=== PATIENT | male | born 1955 | race Caucasian/White ===

== ENCOUNTER 2025-01-29 23:58 | Inpatient (IN) | payer OTHER, SELFPAY ==
[2025-01-29 18:34] VITALS: BP 174/112
[2025-01-29 18:52] LABS: % Basophils 0.8 % (0-2); % Eosinophils 1.6 % (0-6); % Immature Granulocytes 0.6 % (0-0.5); % Lymphocytes 18.9 % (20.5-51.1); % Neutrophils 71.1 % (42.2-75.2); Absolute Basophils 0.1 10^3/uL (0-0.2); Absolute Eosinophils 0.2 10^3/uL (0-0.7); Absolute Immature Granulocytes 0.1 10^3/uL (0-0.05); Absolute Monocytes 0.7 10^3/uL (0.1-0.6); Absolute Neutrophils 7.5 10^3/uL (1.4-6.5); Hematocrit 45.1 % (39.0-52.0); Hemoglobin 15.7 g/dL (13.0-18.0); Mean Corp Hgb Conc. 34.8 g/dL (33.0-37.0); Mean Corpuscular Hgb 29.6 pg (27.0-31.0); Mean Corpuscular Volume 85.1 fL (80.0-94.0); Mean Platelet Volume 9.8 fL (7.4-10.4); Nucleated Red Blood Cells % 0 % (-); Platelet Count 215 10^3/uL (130-400); Red Cell Dist. Width 13.7 % (11.5-14.5); White Blood Cell Count 10.5 10^3/uL (4.8-10.8)
[2025-01-29 19:07] LABS: ALT (SGPT) 30 U/L (0-50); AST (SGOT) 23 U/L (17-59); Albumin 3.9 g/dl (3.5-5.0); Alkaline Phosphatase 76 U/L (38-126); Blood Urea Nitrogen 17 mg/dl (9-20); Calcium 9.2 mg/dl (8.4-10.2); Carbon Dioxide 25 mmol/L (22-30); Chloride 109 mmol/L (98-107); Glucose 122 mg/dl (70-99); Potassium 4.2 mmol/L (3.5-5.1); Sodium 139 mmol/L (135-145); Total Bilirubin 0.8 mg/dl (0.2-1.3); Total Protein 6.2 g/dl (6.3-8.2); eGFR > 60.00
[2025-01-29 19:18] LABS: NT-proBNP 2360 pg/ml; Troponin I 0.037 ng/ml
[2025-01-29 19:31] VITALS: BP 162/97
[2025-01-29 19:33] VITALS: BMI 35.0
--- NOTE | 2025-01-29 19:42 | ED.GENMED ---
History of Present Illness
<Jyoti Hinojosa PA-C - Last Filed: 01/30/25 03:21>
General
Chief Complaint: Breathing Problem
Source: patient
Exam Limitations: none
Time Seen by Provider: 01/29/25 19:27
Nursing documentation reviewed up to this point in time: agreed with
History of Present Illness
History of Present Illness:
Patient is a 69-year-old male with history hypertension presenting to the emergency department for evaluation of shortness of breath. Patient states symptoms been ongoing for the past week although intermittent. He reports shortness of breath both
when lying flat at night and while walking short distances. He denies any associated chest pain, lightheadedness/dizziness, diaphoresis. Denies any back pain. No lower extremity pain or swelling. No fever or cough.
He states that last night he was walking to his car from [place] and had to stop because became so short of breath prompting his visit today to the emergency department.
Patient denies any recent travel or recent surgeries. No personal or family history of blood clots.
Past History
<Jyoti Hinojosa PA-C - Last Filed: 01/30/25 03:21>
Past History
ED Past Medical History: HTN
ED Past Surgical History: None
Social History
Tobacco: Non-smoker
Alcohol: None
Drug: None
Personal: Single
Living: alone
Employment: Employed (Has his own heating and plumbing business)
Review of Systems
<Jyoti Hinojosa PA-C - Last Filed: 01/30/25 03:21>
Review of Systems
Allergies reviewed?: Yes
All Other Systems: ROS reviewed and negative except as documented in HPI and ROS
Phy Exam
<Jyoti Hinojosa PA-C - Last Filed: 01/30/25 03:21>
Physical Exam
Physical Exam:
Vitals: Hypertensive, mildly tachycardic, otherwise vital signs stable. Afebrile
General: Patient is in no acute distress.
Skin: Warm and dry, no rashes or lesions
Head: Normocephalic, atraumatic
Eyes: Sclera nonicteric. EOMs intact. No nystagmus.
Throat: Protecting airway
Neck: Normal ROM, no cervical spine tenderness, no meningismus
Cardiac: Mildly tachycardic, normal rhythm, no murmurs.
Pulm: No apparent respiratory distress. Fine crackles at bases bilaterally.
.
Abdomen: Soft and nontender.
Extremities: No evidence of cyanosis or edema. DP pulses palpable bilaterally
Neuro: AAOx3. Grossly intact.
Psychiatric: Normal affect.
Scores
<Jyoti Hinojosa PA-C - Last Filed: 01/30/25 03:21>
Heart Failure Risk
HF Risk Score: 0
Admission Status: LOW RISK 2.8% Consider discharge to home with f/u visit to PCP/[facility]
<Hernandez Kyle DO - Last Filed: 01/29/25 23:16>
Heart Failure Risk
Heart Failure Risk Score: Yes
History of Stroke or TIA: No
History of intubation for respiratory distress: No
Heart rate on ED arrival >/= 110: No
SaO2 <90% on arrival on room air: No
HR >/=110 during 3min walk test (or too ill to perform test): No
ECG has acute ischemic changes: No
Urea >/=12mmol/L (BUN 33.6mg/dL): No
Serum CO2>/=35mmol/L: No
Troponin I or T elevated to ID Level (0.4mg/dL): No
NT-proBNP >/=5,000ng/L (5,000pg/ml): No
HF Risk Score: 0
Admission Status: LOW RISK 2.8% Consider discharge to home with f/u visit to PCP/[facility]
Course
<Jyoti Hinoojsa PA-C - Last Filed: 01/30/25 03:21>
Orders/Labs/Results
Orders:
Orders
01/29/25 18:36
Electrocardiogram (*1) Urgent
Reason for Study: Shortness of Breath
EKG- Treatment ONCE
01/29/25 18:46
Complete Blood Count/With Diff Urgent
Comprehensive Metabolic Panel Urgent
Pro-BNP [NT-proBNP] Urgent
Troponin I Urgent
01/29/25 19:40
EKG- Treatment ONCE
01/29/25 19:59
D-Dimer Urgent
01/29/25 20:25
CT Chest PE Study Urgent
Comment:
Reason For Exam: exertional SOB, elevated dimer
01/29/25 21:45
Electrocardiogram (*1) Urgent
Reason for Study: Shortness of Breath
01/29/25 21:58
Troponin I Urgent
01/29/25 23:14
Aspirin Chewable [Low Strength Aspirin] 324 mg PO NOW STA
Furosemide [Lasix] 40 mg IV NOW STA
01/29/25 23:43
Aspirin Chewable [Low Strength Aspirin] 81 mg .ROUTE .STK-MED ONE
01/29/25 23:49
Admit/Transfer Patient As Directed
Co-Sign Provider:
Level of Care: Inpatient admission
Assign to:: Telemetry
Physician / Group: Karolina
Diagnosis: new onset CHf
Reason for Telemetry: Subacute Heart Failure
Date to Stop Telemetry: 01/31/25
Time to Stop Telemetry: 11:00
Reason for Hospitalization: heart failure
Expected length of stay greater than two midnights?: Yes
ELOS- Estimated Length of Stay in days: 2
I certify the patient meets the requirements for IP care: Yes
Code Status As Directed
Resuscitation Status: Full Code
PRN Pain Medication Management As Directed
May give lesser potent ordered pain med per pt: Yes
preference::
Protocol:: Medication orders for pain may be administered in a
manner that supports deferring to patient preference
when the pt is:
- Requesting an ordered lesser potent pain medication.
Least to most potent pain medications are defined
as: acetaminophen < NSAID < tramadol < opioids
(morphine, oxycodone, hydromorphone).
- Requesting a lesser dose of the same medication IF
ORDERED.
- Requesting a less intrusive route of administration
if both routes are prescribed by the provider (PO <
IV).
01/29/25 23:54
Lisinopril [Zestril] 20 mg PO NOW STA
01/30/25 00:30
Nitroglycerin Sublingual [Nitrostat (Sublingual)] 0.4 mg SL [id number] PRN
01/30/25 00:30
Echo 2D MMode Color/Doppler Routine
Reason for Study: heart failure
CARDIOLOGY CONSULT Routine
Consulting Provider: Felix Grewal
Was physician already notified: No
Reason for consult: new onset CHF
Consult Notification Routine
Specialty to Notify: Cardiology
HF DIETARY CONSULT Routine
HF EDUCATOR CONSULT Routine
Comment:
Activity As Directed
Activity Level: With Assistance
Intake/ Output As Directed
Frequency: Per unit guidelines
Patient Education As Directed
Type: CHF folder
Comment: give on admission. Document in Interdisciplinary Education record
Sleep Apnea Assessment by RN As Directed
Comment:
Physician Instructions:
Vital Signs As Directed
Frequency: Other
Additional Instructions:: Q12 or per unit guidelines if more frequent.
Weight As Directed
Frequency: Daily
Type of Scale: Standing Scale
Comment: Daily morning weight. If unable to stand, use balanced bed scale.
Weight As Directed
Frequency: Once
Type of Scale: Standing Scale
Comment: Upon Admission. If unable to stand, use balanced bed scale.
Pulse Ox/cont/shift [RESP] Routine
Quantity: 1
Special Instructions: Daily pulse oximetry at rest. If greater than 92% at rest also obtain pulse oximetry
while ambulating as tolerated.
DX Deep Vein Thrombosis Video Routine
01/30/25 04:00
Troponin I Routine
01/30/25 06:00
Basic Metabolic Panel IN AM
Cardiovascular Evaluation IN AM
Hemoglobin A1c [Glycohemoglobin (HgbA1c)] IN AM
Magnesium IN AM
TSH Reflex To Free T4 IN AM
01/30/25 08:00
Aspirin Chewable [Low Strength Aspirin] 81 mg PO DAILY
Furosemide [Lasix] 40 mg IV BID AT 0800,1600
Lisinopril [Zestril] 20 mg PO BID
Tamsulosin [Flomax] 0.4 mg PO DAILY
01/30/25 Dinner
Cholesterol Lowering
At Your Request: Full Participation
Cholesterol Lowering: Sodium, 2 Gram
01/30/25 18:00
Enoxaparin Sodium [Lovenox] 40 mg SC QPM
01/31/25 06:00
Basic Metabolic Panel IN AM
01/31/25 11:00
DC Protocol for Telemetry ONCE
02/01/25 06:00
Basic Metabolic Panel IN AM
Abnormal Lab Results
01/29/25 01/29/25 01/29/25
18:46 19:59 21:58
Abs Immat Gran (auto) 0.1 H 10^3/uL
(0-0.05)
Absolute Neuts (auto) 7.5 H 10^3/uL
(1.4-6.5)
Absolute Monos (auto) 0.7 H 10^3/uL
(0.1-0.6)
Immature Gran % 0.6 H %
(0-0.5)
Lymphocytes % 18.9 L %
(20.5-51.1)
D-Dimer 0.80 H ug/mlFEU
(0.00-0.50)
Chloride 109 H mmol/L
(98-107)
Glucose 122 H mg/dl
(70-99)
Troponin I 0.037 H* ng/ml 0.043 H* ng/ml
Total Protein 6.2 L g/dl
(6.3-8.2)
01/29/25 18:46
01/29/25 18:46
Vital Signs
Initial and Last Documented VS:
Initial Vital Signs
Temp Pulse Resp BP Pulse Ox
98.4 F 98 18 174/112 96
01/29/25 18:34 01/29/25 18:34 01/29/25 18:34 01/29/25 18:34 01/29/25 18:34
Last Documented Vital Signs
Temp Pulse Resp BP Pulse Ox
98 F 81 16 168/93 92
01/30/25 03:02 01/30/25 03:02 01/30/25 03:02 01/30/25 00:12 01/30/25 03:02
Srinilt;Hernandez Kyle, DO - Last Filed: 01/29/25 23:16>
Orders/Labs/Results
Orders:
Orders
01/29/25 18:36
Electrocardiogram (*1) Urgent
Reason for Study: Shortness of Breath
EKG- Treatment ONCE
01/29/25 18:46
Complete Blood Count/With Diff Urgent
Comprehensive Metabolic Panel Urgent
Pro-BNP [NT-proBNP] Urgent
Troponin I Urgent
01/29/25 19:40
EKG- Treatment ONCE
01/29/25 19:59
D-Dimer Urgent
01/29/25 20:25
CT Chest PE Study Urgent
Comment:
Reason For Exam: exertional SOB, elevated dimer
01/29/25 21:45
Electrocardiogram (*1) Urgent
Reason for Study: Shortness of Breath
01/29/25 21:58
Troponin I Urgent
01/29/25 23:14
Aspirin Chewable [Low Strength Aspirin] 324 mg PO NOW STA
Furosemide [Lasix] 40 mg IV NOW STA
01/29/25 23:43
Aspirin Chewable [Low Strength Aspirin] 81 mg .ROUTE .STK-MED ONE
01/29/25 23:49
Admit/Transfer Patient As Directed
Co-Sign Provider:
Level of Care: Inpatient admission
Assign to:: Telemetry
Physician / Group: Karolina
Diagnosis: new onset CHf
Reason for Telemetry: Subacute Heart Failure
Date to Stop Telemetry: 01/31/25
Time to Stop Telemetry: 11:00
Reason for Hospitalization: heart failure
Expected length of stay greater than two midnights?: Yes
ELOS- Estimated Length of Stay in days: 2
I certify the patient meets the requirements for IP care: Yes
Code Status As Directed
Resuscitation Status: Full Code
PRN Pain Medication Management As Directed
May give lesser potent ordered pain med per pt: Yes
preference::
Protocol:: Medication orders for pain may be administered in a
manner that supports deferring to patient preference
when the pt is:
- Requesting an ordered lesser potent pain medication.
Least to most potent pain medications are defined
as: acetaminophen < NSAID < tramadol < opioids
(morphine, oxycodone, hydromorphone).
- Requesting a lesser dose of the same medication IF
ORDERED.
- Requesting a less intrusive route of administration
if both routes are prescribed by the provider (PO <
IV).
01/29/25 23:54
Lisinopril [Zestril] 20 mg PO NOW STA
01/30/25 00:30
Nitroglycerin Sublingual [Nitrostat (Sublingual)] 0.4 mg SL [id number] PRN
01/30/25 00:30
Echo 2D MMode Color/Doppler Routine
Reason for Study: heart failure
CARDIOLOGY CONSULT Routine
Consulting Provider: Felix Grewal
Was physician already notified: No
Reason for consult: new onset CHF
Consult Notification Routine
Specialty to Notify: Cardiology
HF DIETARY CONSULT Routine
HF EDUCATOR CONSULT Routine
Comment:
Activity As Directed
Activity Level: With Assistance
Intake/ Output As Directed
Frequency: Per unit guidelines
Patient Education As Directed
Type: CHF folder
Comment: give on admission. Document in Interdisciplinary Education record
Sleep Apnea Assessment by RN As Directed
Comment:
Physician Instructions:
Vital Signs As Directed
Frequency: Other
Additional Instructions:: Q12 or per unit guidelines if more frequent.
Weight As Directed
Frequency: Daily
Type of Scale: Standing Scale
Comment: Daily morning weight. If unable to stand, use balanced bed scale.
Weight As Directed
Frequency: Once
Type of Scale: Standing Scale
Comment: Upon Admission. If unable to stand, use balanced bed scale.
Pulse Ox/cont/shift [RESP] Routine
Quantity: 1
Special Instructions: Daily pulse oximetry at rest. If greater than 92% at rest also obtain pulse oximetry
while ambulating as tolerated.
DX Deep Vein Thrombosis Video Routine
01/30/25 04:00
Troponin I Routine
01/30/25 06:00
Basic Metabolic Panel IN AM
Cardiovascular Evaluation IN AM
Hemoglobin A1c [Glycohemoglobin (HgbA1c)] IN AM
Magnesium IN AM
TSH Reflex To Free T4 IN AM
01/30/25 08:00
Aspirin Chewable [Low Strength Aspirin] 81 mg PO DAILY
Furosemide [Lasix] 40 mg IV BID AT 0800,1600
Lisinopril [Zestril] 20 mg PO BID
Tamsulosin [Flomax] 0.4 mg PO DAILY
01/30/25 Dinner
Cholesterol Lowering
At Your Request: Full Participation
Cholesterol Lowering: Sodium, 2 Gram
01/30/25 18:00
Enoxaparin Sodium [Lovenox] 40 mg SC QPM
01/31/25 06:00
Basic Metabolic Panel IN AM
01/31/25 11:00
DC Protocol for Telemetry ONCE
02/01/25 06:00
Basic Metabolic Panel IN AM
Abnormal Lab Results
01/29/25 01/29/25 01/29/25
18:46 19:59 21:58
Abs Immat Gran (auto) 0.1 H 10^3/uL
(0-0.05)
Absolute Neuts (auto) 7.5 H 10^3/uL
(1.4-6.5)
Absolute Monos (auto) 0.7 H 10^3/uL
(0.1-0.6)
Immature Gran % 0.6 H %
(0-0.5)
Lymphocytes % 18.9 L %
(20.5-51.1)
D-Dimer 0.80 H ug/mlFEU
(0.00-0.50)
Chloride 109 H mmol/L
(98-107)
Glucose 122 H mg/dl
(70-99)
Troponin I 0.037 H* ng/ml 0.043 H* ng/ml
Total Protein 6.2 L g/dl
(6.3-8.2)
01/29/25 18:46
01/29/25 18:46
Vital Signs
Initial and Last Documented VS:
Initial Vital Signs
Temp Pulse Resp BP Pulse Ox
98.4 F 98 18 174/112 96
01/29/25 18:34 01/29/25 18:34 01/29/25 18:34 01/29/25 18:34 01/29/25 18:34
Last Documented Vital Signs
Temp Pulse Resp BP Pulse Ox
98 F 81 16 168/93 92
01/30/25 03:02 01/30/25 03:02 01/30/25 03:02 01/30/25 00:12 01/30/25 03:02
<Jyoti Hinojosa PA-C - Last Filed: 01/30/25 03:21>
MDM/Problems Addressed
Differential Diagnosis Includes:
Not limited to: Acute coronary syndrome, congestive heart failure, pulmonary embolism, anemia, viral illness, bronchitis, etc.
MDM/Problems Addressed:
69-year-old male presenting with 1 week exertional dyspnea and orthopnea. No associated chest pain, lightheadedness/dizziness, or back pain. No fever or cough or other infectious symptoms. Patient hypertensive on arrival, mildly decreased with my
assessment. Otherwise he has stable vital signs and is afebrile. Physical exam as above. Patient in no apparent respiratory distress. Heart regular rate and rhythm. Bibasilar rales noted on lung exam. No peripheral edema. Abdomen soft and
nontender. Differential broad. Lower suspicion for infectious etiology. Symptoms consistent with possible congestive heart failure versus ACS given exertional nature. Basic labs initiated in triage. CBC without acute abnormalities. Chemistry
unremarkable. Pro BNP elevated to 2360. Troponin elevated at 0.037. No acute ischemic changes noted on EKG. Given mild tachycardia and history of shortness of breath�will obtain D-dimer. Will plan to trend troponin.
Update: D-dimer mildly elevated to 0.8. Will check CTA chest. Patient remains well-appearing and in no apparent respiratory distress.
Update: CTA chest without evidence of pulmonary embolism. Small bilateral pleural effusions noted. Repeat troponin mildly increased to 0.03. EKG remains nonischemic and patient is chest pain-free. Overall impression is likely mild CHF. This
would be a new diagnosis for patient. Suspect elevated troponin likely secondary to demand ischemia. Low suspicion for acute coronary syndrome. Patient will require admission for IV diuresis, further troponin trending, echo, and cardiology
evaluation. Will give 40 mg IV Lasix and 324 aspirin in ED. Patient accepted to hospital service in stable condition. Patient seen alongside attending physician.
Chronic conditions affecting care:
Hypertension
Acute Exacerbation and/or Progression of Chronic Illness:
Acutely hypertensive
<Jyoti Hinojosa PA-C - Last Filed: 01/30/25 03:21>
*Radiology
Radiology exam reviewed: radiology read reviewed
*Pulse Oximetry
Patient hypoxic: no
*EKG
Interpreted by ED Provider?: Yes
EKG Intrepretation Date: 01/29/25
Interpretation: abnormal
Comparison EKG: no comparison EKG present
Heart Rate: 98
Rate: normal
Rhythm: sinus
QRS Pattern: normal QRS
Ischemia: non-specific ST changes
*Radio Operator Interpretation
Rate: tachycardiac
Interpretation: abnormal
Heart Rate: 103
Rhythm: sinus
*Critical Care Note
Total Time (30-74mins, 75-104mins- exclusive of procedures): Not Applicable
<Jyoti Hinojosa PA-C - Last Filed: 01/30/25 03:21>
Patient Management
Discussion with other providers: Hospitalist
Escalation/DeEscalation of care consider admission/obs:
Admit indicated
ED Attending Note
<Jyoti Hinojosa PA-C - Last Filed: 01/30/25 03:21>
-
Portions of this chart may have been created with voice recognition software.� Occasional wrong word or��sound alike� substitutions may have occurred due to the inherent limitations of voice recognition software.
<Hernandez Kyle, DO - Last Filed: 01/29/25 23:16>
ED Attending Note
Patient seen and examined by attending physician: Yes
ED Attending Note:
69-year-old male presents to the emergency department with shortness of breath. Patient states that his symptoms have been progressively worsening over the past week. He states that he also has dyspnea on exertion. Symptoms are exacerbated by
lying flat. He reports no chest pain. Patient denies previous history of congestive heart failure. Patient was seen in conjunction with the PA. I have reviewed and agree with the history and treatment plan presented. On my independent physical
exam, patient is awake, alert, and oriented x3, mild dyspnea. Tachycardic heart rate. No pedal edema present. Lab work which suggest early CHF. Patient to be admitted to trend troponins. Lasix and aspirin ordered.
Discharge Plan
Departure
Patient Disposition: Admit
Date of Disposition: 01/29/25
Time of Disposition: 23:14
Presentation/result/management discussed w/ accepting MD/DO: Hospitalist
Discharge Problem:
New onset of congestive heart failure, Elevated troponin
Interventions
Interventions:
*Risk Screen - Suicide Last Done: 01/29/25 18:34
*General Assessment Last Done: 01/29/25 18:34
*Neglect/Abuse Screening Last Done: 01/29/25 18:34
*ED- Fall Risk Assessment Last Done: 01/29/25 20:06
*ED COVID-19 Vaccine History Last Done: 01/29/25 20:06
*Nursing Disposition Last Done: 01/30/25 01:52
ED- Cardiac Assessment Last Done: 01/29/25 20:03
ED- Pulmonary Assessment Last Done: 01/29/25 20:03
Discharge Date and Time
Discharge Date/Time: 01/30/25 02:26
[2025-01-29 22:30] LABS: Troponin I 0.043 ng/ml
[2025-01-29 23:00] VITALS: BP 163/105
--- NOTE | 2025-01-29 23:24 | HPS.HSE ---
Family Physician
-
Family Physician: Izzy Kirk
Chief Complaint
-
Dyspnea on exertion
History of Present Illness
This is a 69-year-old male who reports past medical history of hypertension presenting to the emergency department with 1 week history of worsening respiratory symptoms.
Patient reported that he has been having dyspnea on exertion for several weeks. Over over the last 1 week he has been having orthopnea and propping himself to sleep at night. He reports that his dyspnea on exertion has gotten increasingly worse.
Denies any pedal edema. He denies palpitations lightheadedness or dizziness. He denies any exertional chest pain. He denies chest pain at rest. He denied pleuritic chest pain. He denies any cough fevers or chills. Patient reported that he last
took medications about 5 years ago in 2019 when he was on lisinopril 40 mg, Norvasc as well as tamsulosin for BPH. He also stopped using a CPAP. He denies any prior history of CAD. He denies any prior history of exertional chest pain. Denies any
prior history of valve disease. He denies any recent cold or flulike illness.
In the emergency department he was afebrile, blood pressure was 160/105, pulse was 92, oxygen saturation was around 92% on room air.
ECG shows normal sinus rhythm at a rate of 98 with occasional PVCs no acute ST or T wave changes. Troponin was 0.043. BNP was elevated at 2360. He had elevated dimer of 0.8, CT angio shows no evidence of PE. There is stable cardiomegaly with
small bilateral pleural effusions.
CBC was unremarkable stop electrolytes BUN and creatinine were normal.
Medical History
Past Medical History
Past Medical History: Reports HTN and Other (CONCHITA not on CPAP)
Past Surgical History: Reports Orthopedic (Right hip arthroplasty)
Social History
Tobacco: Non-smoker
Alcohol: Occasional
Drug: None
Personal: Single
Living: Alone
Employment: Retired
Family History
Family History: Not pertinent
Allergies / Home Medications
Allergies reflects when Allergies were last updated in [employer].
Home Medications with original date entered in [employer]
Allergy/Medication List:
Allergies
Allergy/AdvReac Type Severity Reaction Status Date / Time
No Known Allergies Allergy Verified 01/29/25 18:33
Home Medications
multivitamin 1 tab PO DAILY 01/29/25
Review of Systems
-
History Source: Patient
Constitutional: Reports No Symptoms
EENT: Reports No Symptoms
Respiratory: Reports Trouble Breathing
Cardiac: Reports No Symptoms
Abdomen/GI: Reports No Symptoms
: Reports No Symptoms
Musculoskeletal: Reports No Symptoms
Skin: Reports No Symptoms
Neurological: Reports No Symptoms
Endocrine: Reports No Symptoms
Hematologic/Lymphatic: Reports No Symptoms
Psych: Reports No Symptoms
Physical Exam
Vital Signs
Vital Signs
Temp Pulse Resp BP Pulse Ox
98.4 F 92 24 163/105 93
01/29/25 18:34 01/29/25 23:00 01/29/25 23:00 01/29/25 23:00 01/29/25 23:00
Physical Exam
General: Well Developed, Well Nourished and Respiratory Distress
HEENT: NormoCephalic, Anicteric, Moist mucous membranes and Atraumatic
Respiratory: Clear
Cardiac: S1/S2 and Regular Rhythm
Breast: Deferred by me
GI: Soft, Non Tender and Normal Bowel Sounds
Rectal: Deferred by Provider
Genito-urinary: Deferred by me
Musculoskeletal: No Clubbing, No Cyanosis and No Edema
Skin: Warm
Neuro: AO x 3 and Nonfocal/grossly intact
Hematologic/Lymphatic: No Lymphadenopathy
Psych: Calm
Laboratory Results
-
01/29/25 18:46
01/29/25 18:46
Laboratory Results
Total Bilirubin 0.8 mg/dl (0.2-1.3) 01/29/25 18:46
AST 23 U/L (17-59) 01/29/25 18:46
ALT 30 U/L (0-50) 01/29/25 18:46
Alkaline Phosphatase 76 U/L (38-126) 01/29/25 18:46
Troponin I 0.043 ng/ml H* 01/29/25 21:58
Data Reviewed
-
CT Scan: Report Reviewed by me
Medical Tests (Nuc Med, Echo, EKG etc): Image Personally Visualized and interpreted
Lab Data: Labs Reviewed by me
Old Records: Reviewed
Impression/Plan
-
IMPRESSION:
69-year-old with history of hypertension noncompliant with antihypertensive medications presented to the emergency department with worsening shortness of breath especially over the last 1 week. He has dyspnea on exertion without exertional chest
pain. He has orthopnea. He has some PND. He has some work of breathing even at rest when talking. Lung sounds clear, he has bilateral pleural effusions and mild cardiomegaly. ECG is nonischemic. Troponin 04. BNP is markedly elevated at 2300.
PLAN:
1. CHF - New onset CHF likely on the basis of uncontrolled HTN with markedly elevated diastolic HTN
- admit to telemetry
- lasix 40mg iv q 12
- restart lisinopril 20 bid
- holding further GDMT pending echo
- echo in am
- cardiology consultation
2. ACS - trop 0.043, no chest pain. ROCK. Negative CTA for PE.
- cycle cardiac enzymes
- asa 324 x 1, 81 daily
- ntg prn chest pain
- check lipid panel and a1c
- further ischemic testing in part to explain CHF per cardiology
3. HTN
- restarting lisinopril
- lasix
4. CONCHITA
- oxygen hs, does not want cpap
5. BPH
- restart tamsulosin
DVT PPX - lovenox sq
Code status - full code
[2025-01-29] MEDS: LOW STRENGTH ASPIRIN 324 MG PO (23:40)
[2025-01-29] MEDS: LASIX 40 MG IV (23:40)
[2025-01-30] VITALS (16 sets, daily range): BP systolic 101–168; BP diastolic 64–96; BMI 34.9
[2025-01-30] MEDS: ZESTRIL 20 MG PO ×3 (00:12→21:46)
--- NOTE | 2025-01-30 03:32 | PTCARENOTE ---
Pt was transferred into 2251 from ED for new onset CHF. Pt is AAOx3 SR with PVC's on the monitor. VSS Denies CP. HF education booklet given. POC was reviewed with pt. Call aguilera within reach.
[2025-01-30 04:53] LABS: Blood Urea Nitrogen 15 mg/dl (9-20); Calcium 9.5 mg/dl (8.4-10.2); Carbon Dioxide 29 mmol/L (22-30); Chloride 104 mmol/L (98-107); Estimated Creatinine Clearance 77 ml/min; Glucose 121 mg/dl (70-99); HDL Cholesterol 50 mg/dl; LDL Cholesterol, Calculated 165 mg/dl; Magnesium 2.1 mg/dl (1.6-2.3); Potassium 3.9 mmol/L (3.5-5.1); Sodium 141 mmol/L (135-145); Total Cholesterol 235 mg/dl (50-199); Triglyceride 104 mg/dl (10-149); Very Low Density Lipoprotein 20 mg/dl (0-30); eGFR > 60.00
[2025-01-30 05:07] LABS: Troponin I 0.045 ng/ml
[2025-01-30 05:21] LABS: TSH Reflex To Free T4 2.33 uIU/ml (0.47-4.68)
[2025-01-30] MEDS: LASIX 40 MG IV ×2 (08:27→16:09)
[2025-01-30] MEDS: FLOMAX 0.4 MG PO (08:28)
[2025-01-30] MEDS: LOW STRENGTH ASPIRIN 81 MG PO (08:28)
[2025-01-30] MEDS: FLUSH (NSS) 1 FLUSH IV ×2 (08:31→16:09)
--- NOTE | 2025-01-30 08:44 | W.PN.HOSP.TC ---
Today's Communication/Plan
-
cardiac cath today.
Assessment / Plan
Assessment / Plan
Impression:
69-year-old with history of hypertension noncompliant with antihypertensive medications presented to the emergency department with worsening shortness of breath especially over the last 1 week. He has dyspnea on exertion without exertional chest
pain. He has orthopnea. He has some PND. He has some work of breathing even at rest when talking. Lung sounds clear, he has bilateral pleural effusions and mild cardiomegaly. ECG is nonischemic. Troponin 04. BNP is markedly elevated at 2300.
Seen by cardiology.
Echocardiogram showed:
1. Left ventricle: Normal left ventricular chamber dimensions with moderately
reduced systolic function and estimated ejection fraction of 30-35% by
Gruber's method of discs. The ventricle appears globally hypokinetic. Mild
concentric LVH. Stage I diastolic dysfunction.
2. Right ventricle: Normal
3. Atria: Normal
4. Mitral valve: Mild to moderate mitral regurgitation
5. Aortic valve: Trace aortic insufficiency
6. Tricuspid valve: Trace tricuspid regurgitation. Estimated pulmonary artery
systolic pressures are 30-35 mmHg
Recommending cardiac cath
Assessment/plan:
Acute CHF Exacerbation:
Patient has Acute systolic congestive heart failure
Patient presented with shortness of breath.
BNP level is elevated at 2360
Troponin level peak is 0.045
Continue IV diuresing in form of Lasix 40 mg twice daily
Daily weight.
Strict I's and O's.
Consulted cardiology.
Most recent echo shows from 2018 shows normal EF:
Repeat echo shows EF 30-35 %
Currently recommending cardiac cath which can be done today
NSTEMI
trop 0.043, peaked to 0.045
no chest pain. ROCK. Negative CTA for PE.
continue ASA, Nitro prn
for cardiac cath today
Hypertension
- restarting lisinopril
- lasix
Obstructive sleep apnea
- oxygen hs, does not want cpap
Benign prostatic hyperplasia
- restart tamsulosin
CODE STATUS: Full code
DVT prophylaxis: Lovenox
Diet: Cardiac diet
Disposition: cardiac cath today.
Total time spent on today's encounter was 65 minutes which included time spent in counseling the patient/family regarding diagnosis and treatment plan as listed above, goals of care, and symptom management. Case was discussed with nursing staff,
specialists, and care coordinators/case management. All labs and imaging personally reviewed by me. Remainder the time spent in detailed review of previous records, lab data, imaging, and other medical provider documentation.
Anticipated Discharge: 24 - 48 hours
Subjective/Interval History
-
Date of Service: January 30, 2025
Patient seen and examined at bedside, denies any chest pain or shortness of breath, no abdominal pain, no nausea, no vomiting, no diarrhea or constipation.
Plan for cardiac cath today.
Objective Data
-
Labs:
Laboratory Results
01/30/25
04:05
Sodium 141
Potassium 3.9
Chloride 104
Carbon Dioxide 29
BUN 15
Creatinine 1.0
Glucose 121 H
Calcium 9.5
Vital Signs:
Vital Signs
Temp Pulse Resp BP Pulse Ox
97.2 F 84 18 155/91 97
01/30/25 08:18 01/30/25 08:28 01/30/25 08:18 01/30/25 08:28 01/30/25 08:18
I&O
01/29/25 01/30/25 01/31/25
06:59 06:59 06:59
Output Total 1040 / 1040
Balance -1040 / -1040
Physical Exam
-
General: Well Developed, Well Nourished, No Apparent Distress and Comfortable
HEENT: Normocephalic, Atraumatic, Moist Mucous Membranes, No Ptosis, PERRLA and Nose Appears Normal
Respiratory: Clear to Auscultation and Non Labored Respirations
Cardiac: Regular Rhythm and S1/S2
Breast: Deferred by me
GI: Soft, Nontender, Nondistended and Normal Bowel Sounds
Genito-urinary: No Costovertebral Tender
Musculoskeletal: No Clubbing, No Cyanosis and No Edema
Skin: Warm
Neuro: Awake, Alert, Oriented, AO x 3 and No Motor Deficits
Psych: Calm
Data Reviewed
-
Diagnostic Radiology: Image personally visualized and interpreted and Report Reviewed by me
CT Scan: Image personally visualized and interpreted and Report Reviewed by me
Ultrasound: Image personally visualized and interpreted and Report Reviewed by me
MRI: Image personally visualized and interpreted and Report Reviewed by me
Medical Tests (Nuc Med, Echo etc): Image personally visualized and interpreted and Report Reviewed by me
Labs: Labs Reviewed by me
Old Records: Reviewed
--- NOTE | 2025-01-30 09:48 | CON.CAR ---
Addendum entered and electronically signed by Felix Chavez MD 01/30/25 12:21:
Attending addendum: Patient seen and examined. PA note reviewed and findings compared to me. Briefly, this is a 69 y/o gentleman with a PMH notable for hypertension. He presented to [facility] for evaluation of increased shortness of
breath over 1 month. Interestingly, he was seen by Dr. Ramirez in our office back in 2018 with a small perfusion defect. He never followed up after that visit. He is reasonably active at home. He cares for a 2 story house and mows his own lawn
with sit down mower. He uses weed eater and rakes leaves. He enjoys shooting [place] and tells me that he tries to stay quite active. He noted some increased dyspnea with exertion over the past month. He denies any chest pain. Troponin peaked
at 0.045 ng/ml.
PE
GEN: AAO x 3.��No acute distress
HEENT:��NC/AT, sclera are anicteric,
LUNGS: Clear to bases bilaterally.��No wheezing
CV: Regular rate and rhythm.��Normal S1/S2.��No S3, No S4.��Murmur: None
ABD : Soft, NT, ND, No HSM.��Bowel sounds are present.
EXT: No CCE
NEURO: No focal neurologic deficits��
RECOMMENDATIONS:
-Discussed cardiac catheterization with patient, his daughter, and his son. Discussed risk and benefit. Will proceed
-Risk and benefit discussed
-Further management decisions to be made after catheterization completed.
Original Note:
Consultation
Consultation Request
Date/Time Consultation Requested: 01/30/25 at 0030
Date/Time Consultation Performed: 01/30/25 at 1029
Requesting Provider: Dr. Lui Ramírez
Performing Provider: Dr. Chavez
Reason for Consultation: New acute HF, h/o abnormal stress test
Medical History
-
History of Present Illness:
Patient came to the ER yesterday with ROCK and orthopnea and was admitted with acute HF unknown EF and elevated Troponin and cardiology is now consulted. Patient was previously seen by cardiology back in 2018 when he had an abnormal stress echo that
had been ordered by his PCP for symptoms of ROCK. The SE was abnormal as noted above which prompted cardiology office visit and then an exercise nuclear stress test was performed which was also abnormal as noted above. The patient's continuous towel roller
called him at that time and recommended cardiac catheterization and the patient said that he was not yet ready to schedule and would call back, but looking through ECW tasks it appears that shortly thereafter he called his PCP and said that he did
not wish to follow through with the recommendations of the continuous towel roller and was seeking a second opinion and wanted his PCP to advise him on that. Patient says he never saw another continuous towel roller and the patient's daughter who was on the phone
throughout this HPI reports that she had no idea that the patient's stress test was abnormal in 2018. The patient's daughter reports that patient has increasing short-term memory issues and that she or her brother should be on the phone for all
patient interactions as the patient may not remember all the details. Patient was admitted to this hospital for COVID in 2020 and was HTN. Patient followed up with his PCP, but stopped seeing him as well with the last office visit being on
09/24/2021. Patient stopped taking all of his BP meds shortly thereafter largely because they ran out and he denies any adverse reactions or allergies. Over the last week at least the patient has had ROCK and orthopnea with the worst of his symptoms
being this past Thursday while at a sikh festival and so he came to the ER on Thursday and was admitted with acute HF. His initial troponin was elevated at 0.037 and is up to 0.045 this morning. He denies any chest pain at any time.
PMH:
h/o abnormal stress test
Abnormal stress echo 10/28/2017
Abnormal exercise nuclear stress test 12/30/2017
Patient declined cardiac cath
HTN
stopped taking all BP meds due to running out, no allergies or adverse reactions
Hyperglycemia
Hyperlipidemia
Memory problems, per patient and family, no formal cognitive dysfunction diagnosis
Past Medical History
Past Medical History: Other (in HPI)
Past Surgical History: Orthopedic (DONAVON)
Social History
Tobacco: Non-Smoker
Alcohol: Occasional
Drug: None
Personal:
Living: Alone
Family History
Family History: Cancer and Other (OPD, dementia)
Allergies / Home Medications
Allergy/AdvReac Type Severity Reaction Status Date / Time
No Known Allergies Allergy Verified 01/29/25 18:33
�Medication �Instructions �Recorded �Confirmed �Type
multivitamin 1 tab PO DAILY 01/29/25 01/29/25 History
Review of Systems
-
History Source: Patient and Family (daughter, Ruchi, on phone and then later also son, Ventura, on phone as well)
All other systems: Negative unless noted
Physical Exam
Vital Signs
Temp Pulse Resp BP Pulse Ox
97.2 F 84 18 155/91 97
01/30/25 08:18 01/30/25 08:28 01/30/25 08:18 01/30/25 08:28 01/30/25 08:18
GEN: NAD. AAOx3
HEENT: EOMI, MMM
LUNGS: RA. CTA B/L, no wheeze
CV: SR on tele. Reg, S1/S2, no murmur
ABD: soft, BS+, NT, ND
EXT: No clubbing, cyanosis, lesions or edema B/L
NEURO: Gross non-focal
SKIN: Warm, dry and pink. No rash
Lab Results
01/29/25 18:46
01/30/25 04:05
Troponin I 0.045 ng/ml H* 01/30/25 04:05
Gzp-H-Zrncmpsisvi Pept 2360 pg/ml 01/29/25 18:46
Impression / Plan
-
PCP: Previously followed with Dr. Paul Isidro who is now retired, has not established a new PCP
Card: Dr. Ramirez in 2018, has not been seeing another continuous towel roller
Impression:
Admitted with ROCK, orthopnea and new acute HF
Acute HFrEF
CM EF 30-35% by preliminary echo report 01/30/25
Elevated Troponin
h/o abnormal stress test
Abnormal stress echo 10/28/2017
Abnormal exercise nuclear stress test 12/30/2017
Patient declined cardiac cath
HTN
stopped taking all BP meds due to running out, no allergies or adverse reactions
Hyperglycemia
Hyperlipidemia
Memory problems, per patient and family, no formal cognitive dysfunction diagnosis
Exercise stress echo 10/28/2017: 4 completed 5 minutes 16 seconds Emiliano protocol for 103% MPHR, poor exercise tolerance, moderate to severely increased resting blood pressure, abnormal stress echo with [address] depression leads
to 3 aVF and V3 5 through V6 that persisted 2 minutes into recovery, but no sizable area of ischemia seen on stress echo imaging, DTS negative for c/w moderate risk
Exercise nuclear stress test 12/30/2017: Completed 6 minutes Emiliano protocol for 93% MPHR, small area of mildly decreased perfusion that is minimally reversible in the mid lateral segment consistent with residual ischemia versus attenuation
Echo 01/30/2025: EF 30 to 35%, with global hypokinesis, normal RV size and function, mild MR, normal pericardium without effusion
Plan:
-Patient came to the ER yesterday with ROCK and orthopnea and was admitted with acute HF unknown EF and elevated Troponin and cardiology is now consulted. Patient was previously seen by cardiology back in 2018 when he had an abnormal stress echo that
had been ordered by his PCP for symptoms of ROCK. The SE was abnormal as noted above which prompted cardiology office visit and then an exercise nuclear stress test was performed which was also abnormal as noted above. The patient's continuous towel roller
called him at that time and recommended cardiac catheterization and the patient said that he was not yet ready to schedule and would call back, but looking through ECW tasks it appears that shortly thereafter he called his PCP and said that he did
not wish to follow through with the recommendations of the continuous towel roller and was seeking a second opinion and wanted his PCP to advise him on that. Patient says he never saw another continuous towel roller and the patient's daughter who was on the phone
throughout this HPI reports that she had no idea that the patient's stress test was abnormal in 2018. The patient's daughter reports that patient has increasing short-term memory issues and that she or her brother should be on the phone for all
patient interactions as the patient may not remember all the details. Patient was admitted to this hospital for COVID in 2020 and was HTN. Patient followed up with his PCP, but stopped seeing him as well with the last office visit being on
09/24/2021. Patient stopped taking all of his BP meds shortly thereafter largely because they ran out and he denies any adverse reactions or allergies. Over the last week at least the patient has had ROCK and orthopnea with the worst of his symptoms
being this past Thursday while at a sikh festival and so he came to the ER on Thursday and was admitted with acute HF. His initial troponin was elevated at 0.037 and is up to 0.045 this morning. He denies any chest pain at any time.
-ECG reviewed by me is SR with rare PVC and nonspecific inferior changes
-Patient reports symptomatic improvement after Lasix 40 mg IV in the ER last night and Lasix 40 mg IV BID thereafter. Initial weight is not accurate, came from a stretcher scale. Patient was not taking a diuretic prior to admission.
-Preliminary echo suggests EF down at 30-35% with global hypokinesis. Talked with patient, daughter and son over 2 different phone calls totalling 16 minutes the results of the echo and previous abnormal stress tests from 2018. Patient does not
remember the recommendation for cath back in 2018 and patient's daughter was unaware of the stress tests being abnormal. Regardless, patient is now agreeable to cardiac cath and his children are in agreement. We spent time talking about cath
procedure including sedation, we talked about risks of bleeding and bruising and also talked about more serious risks of heart attack, stroke and .
-Initial Troponin 0.037 and now up to 0.045. Continue to trend with another Troponin later today. Cardiac cath as noted, it is possible though that this is a nonischemic myocardial injury Troponin elevation due to acute HF as opposed to ACS.
-Aspirin 81 mg daily ordered
-New to lisinopril 20 mg BID, but was previously on a regimen of lisinopril/HCTZ that he tolerated without difficulty or allergy
-Will add Toprol XL 25 mg daily, ordered by me. Patient previously tolerated Toprol XL 50 mg daily back in 2019 and it was stopped for unclear reasons, no known adverse reaction or allergy.
-LDL is 165, no previous statins prior to this admission. Start atorvastatin 40 mg daily, ordered by me.
-HgbAc1 is pending, hyperglycemia on labs. No previous diagnosis of diabetes
-Patient and family report 'memory problems' but no formal cognitive dysfunction diagnosis. Patient's family daughter or son should be on the phone for all interactions.
--- NOTE | 2025-01-30 12:57 | PTCARENOTE ---
received patient this am ambulating oin room. infoirmed patient that he will remain NPO until seen by small appliance assembly supervisor. monitor shows NSR with PVC's, BP 155/91, am medications given.
--- NOTE | 2025-01-30 12:58 | PTCARENOTE ---
to clinical lab specialist via stretcher.
--- NOTE | 2025-01-30 13:05 | CM ---
Chart reviewed. Patient is independent of ADLS, lives alone in a 2 [address], 2 [address]AR[address], 0 DME. Plan is for the patient to return home. CM to follow
[2025-01-30 13:24] LABS: Glycohemoglobin (HgbA1c) 6.1 % (4.0-5.6)
--- NOTE | 2025-01-30 14:17 | ITS.CL.CATH ---
Credit Risk Analyst - Catheterization
Cardiac Catheterization
Procedure Report:
LEFT HEART CATHETERIZATION
Date of Procedure: January 30, 2025
Referring: Dr. Felix Chavez
PROCEDURES:
1. Left heart catheterization with coronary and single-plane left ventriculography
INDICATION: New cardiomyopathy and congestive heart failure with mildly elevated troponin
ACCESS: Right radial artery, 6 Scottish sheath
HEMODYNAMICS : (mmHg)
AO (s/d) : 96/60
LV (s/d) : 97/12
LVEDP : 15
CORONARY FINDINGS
DOMINANCE: Normal
LEFT MAIN: Normal
LEFT ANTERIOR DESCENDING: The LAD arises normally from the left main and runs in the anterior interventricular groove. The LAD has only minor irregularities over its course with no focal obstructive stenosis. The first diagonal branch is a
moderate to large caliber vessel that is widely patent
RAMUS: Small to medium caliber vessel which is widely patent
CIRCUMFLEX: The circumflex is a medium caliber nondominant vessel that supplies 2 small obtuse marginal branches
RIGHT CORONARY ARTERY: The right coronary artery is a large dominant vessel that is widely patent
VENTRICULOGRAPHY: Left ventriculography is performed in an CRAIG projection. The digital single-plane left ventricular ejection fraction is visually estimated at 30%. The ventricle is dilated and globally hypokinetic
SEDATION: 26 minutes of procedural sedation was utilized. An independent medical center director was present to assist with and help manage the patient's level of consciousness and physiologic status.
RADIATION SUMMARY: Fluoro Time (min): 3.0, Dose (mGy): 513.6, DAP (Gy.cm2) : 45.7
Closure Device: TR band
CONCLUSIONS
1. Nonobstructive coronary disease
2. Dilated cardiomyopathy
RECOMMENDATIONS
1. Guideline directed medical therapy for treatment of nonischemic dilated cardiomyopathy
Copy to: Dr. Jessi Ramirez
--- NOTE | 2025-01-30 16:16 | PTCARENOTE ---
Addendum entered by Francesca Arvizu RN 01/30/25 16:36:
Latonia BROWN informed.
Original Note:
patient had 12 beats of Vtach, asymptomatic.
[2025-01-30] MEDS: LOVENOX 40 MG SC (18:02)
[2025-01-30] MEDS: LIPITOR 40 MG PO (18:02)
[2025-01-30] MEDS: COREG 6.25 MG PO (21:45)
--- NOTE | 2025-01-30 21:57 | PTCARENOTE ---
Report received from DANA Ma. Walking rounds done. Pt assessed. VS done. Pt awake, alert, oriented x 4. Speech clear. Equal strength x 4. Pt on room air. Sats 92-95%. BBS present. Rales to posterior B bases. Pt in SR. BP 132/82. R Radial cath site
check done. See flowsheet. +2 Radial and DP pulses. Trace edema B ankles. Belly obese, round, soft. Normoactive bs x 4. Reports passing flatus. Urine clear, yellow. Reports voiding ad regine in BR. Meds given. Ongoing plan of care.
--- NOTE | 2025-01-31 | PTCARENOTE ---
VS done by PCT at 2252. Pt currently in SR, rate 60-70's. Pt in bed sleeping.
[2025-01-31 05:00] VITALS: BMI 34.9
[2025-01-31 05:02] VITALS: BP 118/78
--- NOTE | 2025-01-31 05:30 | PTCARENOTE ---
Labs drawn and sent by PCT. Pt weighed on standing scale. VS done. Recheck of O2 sats on room air are 94%. Pt remains in SR. Pt lying at 10-15 degrees in bed, states he is breathing well, without dyspnea. Using 1 pillow.
[2025-01-31 05:42] LABS: Hematocrit 45.1 % (39.0-52.0); Hemoglobin 15.3 g/dL (13.0-18.0); Mean Corp Hgb Conc. 33.9 g/dL (33.0-37.0); Mean Corpuscular Hgb 29.4 pg (27.0-31.0); Mean Corpuscular Volume 86.6 fL (80.0-94.0); Platelet Count 204 10^3/uL (130-400); Red Blood Cell Count 5.21 10^6/uL (4.70-6.10); Red Cell Dist. Width 13.6 % (11.5-14.5); White Blood Cell Count 9.4 10^3/uL (4.8-10.8)
[2025-01-31 06:06] LABS: Blood Urea Nitrogen 25 mg/dl (9-20); Calcium 9.4 mg/dl (8.4-10.2); Carbon Dioxide 30 mmol/L (22-30); Chloride 105 mmol/L (98-107); Estimated Creatinine Clearance 59 ml/min; Glucose 125 mg/dl (70-99); Potassium 4.1 mmol/L (3.5-5.1); Sodium 140 mmol/L (135-145); eGFR 58.73
[2025-01-31 07:23] VITALS: BP 110/62
[2025-01-31] MEDS: FLOMAX 0.4 MG PO (09:06)
[2025-01-31] MEDS: ZESTRIL 20 MG PO (09:06)
[2025-01-31] MEDS: LOW STRENGTH ASPIRIN 81 MG PO (09:06)
[2025-01-31] MEDS: FLUSH (NSS) 2 FLUSH IV (09:07)
[2025-01-31] MEDS: LASIX 40 MG IV (09:07)
[2025-01-31] MEDS: COREG 6.25 MG PO (09:08)
--- NOTE | 2025-01-31 10:16 | W.PN.HOSP.TC ---
Today's Communication/Plan
-
Discharge home today if cleared by cardiology
Assessment / Plan
Assessment / Plan
Impression:
69-year-old with history of hypertension noncompliant with antihypertensive medications presented to the emergency department with worsening shortness of breath especially over the last 1 week. He has dyspnea on exertion without exertional chest
pain. He has orthopnea. He has some PND. He has some work of breathing even at rest when talking. Lung sounds clear, he has bilateral pleural effusions and mild cardiomegaly. ECG is nonischemic. Troponin 04. BNP is markedly elevated at 2300.
Seen by cardiology.
Echocardiogram showed:
1. Left ventricle: Normal left ventricular chamber dimensions with moderately
reduced systolic function and estimated ejection fraction of 30-35% by
Gruber's method of discs. The ventricle appears globally hypokinetic. Mild
concentric LVH. Stage I diastolic dysfunction.
2. Right ventricle: Normal
3. Atria: Normal
4. Mitral valve: Mild to moderate mitral regurgitation
5. Aortic valve: Trace aortic insufficiency
6. Tricuspid valve: Trace tricuspid regurgitation. Estimated pulmonary artery
systolic pressures are 30-35 mmHg
Recommending cardiac cath which came back shows nonobstructive coronary artery, Dilated cardiomyopathy
Cardiac recommends guideline directed medical therapy for treatment of nonischemic dilated cardiomyopathy
Assessment/plan:
Acute CHF Exacerbation:
Patient has Acute systolic congestive heart failure
Patient presented with shortness of breath.
BNP level is elevated at 2360
Troponin level peak is 0.045
Continue IV diuresing in form of Lasix 40 mg twice daily
Daily weight.
Strict I's and O's.
Consulted cardiology.
Most recent echo shows from 2018 shows normal EF:
Repeat echo shows EF 30-35 %
Recommending cardiac cath which came back shows nonobstructive coronary artery, Dilated cardiomyopathy
Cardiac recommends guideline directed medical therapy for treatment of nonischemic dilated cardiomyopathy.
Nonischemic cardiomyopathy
trop 0.043, peaked to 0.045
no chest pain. ROCK. Negative CTA for PE.
continue ASA, Nitro prn
Cardiac cath shows nonobstructive coronary artery disease
Hypertension
- restarting lisinopril
- lasix
Obstructive sleep apnea
- oxygen hs, does not want cpap
Benign prostatic hyperplasia
- restart tamsulosin
CODE STATUS: Full code
DVT prophylaxis: Lovenox
Diet: Cardiac diet
Disposition: Discharge home today
Total time spent on today's encounter was 65 minutes which included time spent in counseling the patient/family regarding diagnosis and treatment plan as listed above, goals of care, and symptom management. Case was discussed with nursing staff,
specialists, and care coordinators/case management. All labs and imaging personally reviewed by me. Remainder the time spent in detailed review of previous records, lab data, imaging, and other medical provider documentation.
Anticipated Discharge: Today
Subjective/Interval History
-
Date of Service: January 31, 2025
Patient seen and examined at bedside, denies any chest pain or shortness of breath, no abdominal pain, no nausea, no vomiting, no diarrhea or constipation.
Objective Data
-
Labs:
Laboratory Results
01/31/25
05:13
WBC 9.4
Hgb 15.3
Hct 45.1
Plt Count 204
Sodium 140
Potassium 4.1
Chloride 105
Carbon Dioxide 30
BUN 25 H
Creatinine 1.3
Glucose 125 H
Calcium 9.4
Vital Signs:
Vital Signs
Temp Pulse Resp BP Pulse Ox
98.1 F 93 18 110/62 96
01/31/25 07:19 01/31/25 09:00 01/31/25 07:19 01/31/25 07:23 01/31/25 07:19
I&O
01/30/25 01/31/25 02/01/25
06:59 06:59 06:59
Output Total 1040 / 1040 800 / 800
Balance -1040 / -1040 -800 / -800
Physical Exam
-
General: Well Developed, Well Nourished, No Apparent Distress and Comfortable
HEENT: Normocephalic, Atraumatic, Moist Mucous Membranes, No Ptosis, PERRLA and Nose Appears Normal
Respiratory: Rales and Non Labored Respirations
Cardiac: Regular Rhythm and S1/S2
Breast: Deferred by me
GI: Soft, Nontender, Nondistended and Normal Bowel Sounds
Genito-urinary: No Costovertebral Tender
Musculoskeletal: No Clubbing, No Cyanosis and No Edema
Skin: Warm
Neuro: Awake, Alert, Oriented, AO x 3 and No Motor Deficits
Psych: Calm
Data Reviewed
-
Diagnostic Radiology: Image personally visualized and interpreted and Report Reviewed by me
CT Scan: Image personally visualized and interpreted and Report Reviewed by me
Ultrasound: Image personally visualized and interpreted and Report Reviewed by me
MRI: Image personally visualized and interpreted and Report Reviewed by me
Medical Tests (Nuc Med, Echo etc): Image personally visualized and interpreted and Report Reviewed by me
Labs: Labs Reviewed by me
Old Records: Reviewed
[2025-01-31 10:38] VITALS: BMI 34.9
--- NOTE | 2025-01-31 11:07 | W.PN.CARDCBS ---
Addendum entered and electronically signed by René Mata MD 01/31/25 13:53:
I saw and examined the patient.
The Component Lab Tech's note was reviewed and I agree with the note.
Comment:
GEN: No distress, awake, Ox3
HEENT: supple, anicteric, mmm
LUNGS: CTA, no wheezes/rales
CV: Reg, S1/S2, 1/6 syst LSB, no gallop
ABD: soft, BS+, NT/ND
EXT: No edema
NEURO: Gross non-focal
SKIN: No rash
PLan:
Overall doing well. Cardiac cath with nonobstructive CAD.
Okay for discharge.
Continue Coreg, lisinopril, and Lasix.
Will consider adding spironolactone as outpatient. Blood pressure remains marginal.
Original Note:
Today's Communication / Plan
-
D/C to home
Talked with daughter
He is agreeable to VN
56 minutes in face to face and coordination of care including e-scribing meds and talking with family
Impression / Plan
-
PCP: Previously followed with Dr. Paul Isidro who is now retired, has not established a new PCP
Card: Dr. Ramirez in 2018, has not been seeing another emergency nurse
Impression:
Admitted with ROCK, orthopnea and new acute HF
Acute HFrEF
CM EF 30-35% by preliminary echo report 01/30/25
Elevated Troponin
h/o abnormal stress test
Abnormal stress echo 10/28/2017
Abnormal exercise nuclear stress test 12/30/2017
Patient declined cardiac cath in 2018
Nonobstructive CAD by cardiac cath 01/30/25
HTN
stopped taking all BP meds due to running out, no allergies or adverse reactions
Hyperglycemia, prediabetes
Hyperlipidemia
Memory problems, per patient and family, no formal cognitive dysfunction diagnosis
Exercise stress echo 10/28/2017: 4 completed 5 minutes 16 seconds Emiliano protocol for 103% MPHR, poor exercise tolerance, moderate to severely increased resting blood pressure, abnormal stress echo with [address] depression leads
to 3 aVF and V3 5 through V6 that persisted 2 minutes into recovery, but no sizable area of ischemia seen on stress echo imaging, DTS negative for c/w moderate risk
Exercise nuclear stress test 12/30/2017: Completed 6 minutes Emiliano protocol for 93% MPHR, small area of mildly decreased perfusion that is minimally reversible in the mid lateral segment consistent with residual ischemia versus attenuation
Echo 01/30/2025: EF 30 to 35%, with global hypokinesis, normal RV size and function, mild MR, normal pericardium without effusion
Plan:
-Patient had nonobstructive CAD by cath 01/30/25. Will manage Troponin elevation as a nonischemic myocardial injury Troponin elevation
-Patient now with newly diagnosed NICM possibly due to untreated HTN.
-New to Coreg 6.25 mg BID this admission
-New to lisinopril 20 mg BID, but was previously on a regimen of lisinopril/HCTZ that he tolerated without difficulty or allergy
-Patient cannot afford Farxiga, he has a $2000 deductible with his insurance. We made a plan to cont with lisinopril and Coreg for now. Then in 1-2 weeks he will have outpatient labs and if stable at office visit we will start spironolactone. If no
improvement at 90 day echo then he'd be willing to try Farxiga, but it still might be too much of a financial hardship.
-New to atorvastatin 40 mg daily this admission
-New to aspirin 81 mg daily this admission
-HgbA1c is 6.1 consistent with prediabetes
-Called and talked with patient's daughter while I was in the room with the patient for 21 minutes. We reviewed meds once by one and the plan to continue to adjust medical therapy at upcoming office visit. I also sent pictures of med lists and
doctor's names and office phone numbers using patient's phone with his consent.
-Patient given 3 handouts from the [employer] website for CHF and cardiomyopathy that have instructions for daily weights and watching for other signs and symptoms of CHF. I offered to give the patient a scale, but he says he has one at home.
-Patient and family report 'memory problems' but no formal cognitive dysfunction diagnosis. Patient's family daughter or son should be on the phone for all interactions.
-D/C to home 01/31/25.
HPI: Patient came to the ER yesterday with ROCK and orthopnea and was admitted with acute HF unknown EF and elevated Troponin and cardiology is now consulted. Patient was previously seen by cardiology back in 2018 when he had an abnormal stress echo
that had been ordered by his PCP for symptoms of ROCK. The SE was abnormal as noted above which prompted cardiology office visit and then an exercise nuclear stress test was performed which was also abnormal as noted above. The patient's
emergency nurse called him at that time and recommended cardiac catheterization and the patient said that he was not yet ready to schedule and would call back, but looking through ECW tasks it appears that shortly thereafter he called his PCP and said
that he did not wish to follow through with the recommendations of the emergency nurse and was seeking a second opinion and wanted his PCP to advise him on that. Patient says he never saw another emergency nurse and the patient's daughter who was on the
phone throughout this HPI reports that she had no idea that the patient's stress test was abnormal in 2018. The patient's daughter reports that patient has increasing short-term memory issues and that she or her brother should be on the phone for
all patient interactions as the patient may not remember all the details. Patient was admitted to this hospital for COVID in 2020 and was HTN. Patient followed up with his PCP, but stopped seeing him as well with the last office visit being on
09/24/2021. Patient stopped taking all of his BP meds shortly thereafter largely because they ran out and he denies any adverse reactions or allergies. Over the last week at least the patient has had ROCK and orthopnea with the worst of his symptoms
being this past Thursday while [place] moravian [place] and so he came to the ER on Thursday and was admitted with acute HF. His initial troponin was elevated at 0.037 and is up to 0.045 this morning. He denies any chest pain at any time.
Progress Note - Stockroom Attendant
Subjective
Date of Service: January 31, 2025
He feels well, no more orthopnea, wants to go home
Objective
Labs:
01/31/25 05:13
01/31/25 05:13
Labs
Hgb 15.3 g/dL (13.0-18.0) 01/31/25 05:13
Hct 45.1 % (39.0-52.0) 01/31/25 05:13
Plt Count 204 10^3/uL (130-400) 01/31/25 05:13
Sodium 140 mmol/L (135-145) 01/31/25 05:13
Potassium 4.1 mmol/L (3.5-5.1) 01/31/25 05:13
BUN 25 mg/dl (9-20) H 01/31/25 05:13
Creatinine 1.3 mg/dL (0.7-1.3) 01/31/25 05:13
Glucose 125 mg/dl (70-99) H 01/31/25 05:13
Troponins
01/29/25 01/29/25 01/30/25
18:46 21:58 04:05
Troponin I 0.037 H* 0.043 H* 0.045 H*
Vital Signs and I&O:
Vital Signs
Temp Pulse Resp BP Pulse Ox
98.1 F 93 18 110/62 96
01/31/25 07:19 01/31/25 09:00 01/31/25 07:19 01/31/25 07:23 01/31/25 08:55
Vital Signs
Temp Pulse Resp BP Pulse Ox
98.1 F 93 18 110/62 96
01/31/25 07:19 01/31/25 09:00 01/31/25 07:19 01/31/25 07:23 01/31/25 08:55
Intake & Output
01/29/25 01/30/25 01/31/25 02/01/25
06:59 06:59 06:59 06:59
Output Total 1040 / 1040 800 / 800
Balance -1040 / -1040 -800 / -800
Physical Exam
Physical Exam
GEN: NAD. AAOx3
HEENT: EOMI, MMM
LUNGS: RA. No wheeze
CV: SR on tele.
EXT: No edema B/L
NEURO: Gross non-focal
SKIN: No rash
--- NOTE | 2025-01-31 11:31 | PTCARENOTE ---
The patient is aaox4, vitals signs are stable. NSR with PVCs is noted on the monitor. He has no complaints of SOB or discomfort. He is able to lay flat on the bed without difficulty breathing. His right wrist bandage was removed and I reviewed his
post cath activity restrictions. Heart failure education was reviewed with the patient. He is anticipating being discharged.
--- NOTE | 2025-01-31 11:43 | CM ---
Pricing on Farixga through the patient's [employer] PP is $590 for the first month and then is will cost $145 a month until the patient meets his OOP $2000. Patient isn't sure if he wants to pay the cost and is asking for alternatives. Notified Latonia
Hany BROWN.
--- NOTE | 2025-01-31 11:47 | CM ---
Chart reviewed. Patient is independent of ADLS, lives alone in a 2 [address], 2 VALARIE, 0 DME. I spoke to the patient's daughter Ruchi and answered her questions. Patient's daughter was interested in VN, but patient is still driving. Plan is for the
patient to return home. CM to follow
[2025-01-31 12:07] VITALS: BP 102/72
[2025-01-31] MEDS: FARXIGA 10 MG PO (12:15)
--- NOTE | 2025-01-31 13:54 | W.DCSUMMARY ---
Discharge Summary
Discharge Data
Date of Admission: 01/29/25
Date of Discharge: 01/31/25
-
Pending Results: No
Hospital Course
Hospital course
69-year-old with history of hypertension noncompliant with antihypertensive medications presented to the emergency department with worsening shortness of breath especially over the last 1 week. He has dyspnea on exertion without exertional chest
pain. He has orthopnea. He has some PND. He has some work of breathing even at rest when talking. Lung sounds clear, he has bilateral pleural effusions and mild cardiomegaly. ECG is nonischemic. Troponin 04. BNP is markedly elevated at 2300.
Seen by cardiology.
Echocardiogram showed:
1. Left ventricle: Normal left ventricular chamber dimensions with moderately
reduced systolic function and estimated ejection fraction of 30-35% by
Gruber's method of discs. The ventricle appears globally hypokinetic. Mild
concentric LVH. Stage I diastolic dysfunction.
2. Right ventricle: Normal
3. Atria: Normal
4. Mitral valve: Mild to moderate mitral regurgitation
5. Aortic valve: Trace aortic insufficiency
6. Tricuspid valve: Trace tricuspid regurgitation. Estimated pulmonary artery
systolic pressures are 30-35 mmHg
Recommending cardiac cath which came back shows nonobstructive coronary artery, Dilated cardiomyopathy
Cardiac recommends guideline directed medical therapy for treatment of nonischemic dilated cardiomyopathy
During hospitalization patient was treated from the following
Acute CHF Exacerbation:
Patient has Acute systolic congestive heart failure
Patient presented with shortness of breath.
BNP level is elevated at 2360
Troponin level peak is 0.045
Continue IV diuresing in form of Lasix 40 mg twice daily
Daily weight.
Strict I's and O's.
Consulted cardiology.
Most recent echo shows from 2018 shows normal EF:
Repeat echo shows EF 30-35 %
Recommending cardiac cath which came back shows nonobstructive coronary artery, Dilated cardiomyopathy
Cardiac recommends guideline directed medical therapy for treatment of nonischemic dilated cardiomyopathy.
Nonischemic cardiomyopathy
trop 0.043, peaked to 0.045
no chest pain. ROCK. Negative CTA for PE.
continue ASA, Nitro prn
Cardiac cath shows nonobstructive coronary artery disease
Hypertension
- restarting lisinopril
- lasix
Obstructive sleep apnea
- oxygen hs, does not want cpap
Benign prostatic hyperplasia
- restart tamsulosin
CODE STATUS: Full code
DVT prophylaxis: Lovenox
Diet: Cardiac diet
Disposition: Discharge home today
Total time spent on today's encounter was 40 minutes which included time spent in counseling the patient/family regarding diagnosis and treatment plan as listed above, goals of care, and symptom management. Case was discussed with nursing staff,
specialists, and care coordinators/case management. All labs and imaging personally reviewed by me. Remainder the time spent in detailed review of previous records, lab data, imaging, and other medical provider documentation.
Anticipated Discharge: Today
Discharge Plan
-
Patient Disposition: Home with Home Care
Discharge Diagnosis/Procedures: cardiac catheterization
Systolic congestive heart failure
Nonischemic cardiomyopathy
Hypertension
Obstructive sleep apnea.
Benign prostatic hyperplasia
Diet: Low Cholesterol and Low Sodium
Activity: As tolerated
Driving Restrictions: No driving for 24 hours
Bathing Restrictions: OK to Shower
Other Services: VN and Cardiac Rehab
Specialty Instructions: Weigh Daily- Call MD for wt gain/loss 3 lbs overnight/5 lbs in 1 week
Instructions: *[facility] Heart Failure Instructions
Stand Alone Forms: DC Instructions- Cath/EP Lab
Referrals:
Izzy Kirk MD [Family Provider] -
Keila Sanchez PA-C [Specified Professional Personl] - 02/15/25 11:00 am (Cardiology followup appointment)
Prescriptions:
New
atorvastatin 40 mg Tablet
40 mg PO QPM Qty: 30 11RF
carvedilol 6.25 mg Tablet
6.25 mg PO BID 30 Days Qty: 60 11RF
tamsulosin 0.4 mg Capsule
0.4 mg PO DAILY 30 Days Qty: 30 0RF
aspirin 81 mg Tablet,Chewable
81 mg PO DAILY Qty: 30 0RF
lisinopril 20 mg Tablet
20 mg PO BID Qty: 60 11RF
furosemide [Lasix] 40 mg tablet
40 mg PO DAILY Qty: 30 11RF
Continued
multivitamin Tablet
1 tab PO DAILY
Discharge Orders:
Discharge Patient (As Directed); Ordered 01/31/25
Ordered By: Lui Ramírez
Care Plan Goals
Care Plan Goals:
Problem: Readiness for enhanced knowledge related to diagnosis and treatment plan
Goal: Understand your diagnosis and treatment plan needs, including medications if applicable.
Instructions: Know your diagnosis, underlying causes and treatment plan options, including medications if applicable. Consult with your health care team to learn about your diagnosis and treatment plan, including medications if applicable.
Discharge Date and Time
Print Language: SLOVENIAN
== END 2025-01-31 15:00 | disposition home health service (06) | DRG 286 ==
LOC: IVU 23:58
PROVIDERS: Emergency Medicine; Internal Medicine Interventional Cardiology; Nurse Practitioner; Physician Assistant; ADMITTING PHYSICIAN Internal Medicine; ATTENDING PHYSICIAN General Practice; CONSULT PHYSICIAN Internal Medicine Cardiovascular Disease; EMERGENCY PHYSICIAN Student in an Organized Health Care Education/Training Program; FAMILY PHYSICIAN Family Medicine
PROC: B2111ZZ Fluoroscopy of Multiple Coronary Arteries using Low Osmolar Contrast (ICD-10-PCS; 2025-01-30)
PROC: B2151ZZ Fluoroscopy of Left Heart using Low Osmolar Contrast (ICD-10-PCS; 2025-01-30)
PROC: 4A023N7 Measurement of Cardiac Sampling and Pressure, Left Heart, Percutaneous Approach (ICD-10-PCS; 2025-01-30)
DX: I11.0 Hypertensive heart disease with heart failure (principal); I50.21 Acute systolic (congestive) heart failure; I34.0 Nonrheumatic mitral (valve) insufficiency; I42.0 Dilated cardiomyopathy; I25.10 Atherosclerotic heart disease of native coronary artery without angina pectoris; G47.33 Obstructive sleep apnea (adult) (pediatric); N40.0 Benign prostatic hyperplasia without lower urinary tract symptoms; I5A Non-ischemic myocardial injury (non-traumatic); Z91.148 Patient's other noncompliance with medication regimen for other reason; Z79.82 Long term (current) use of aspirin
CPT/HCPCS: 71275; 80048; 80053; 80061; 83036; 83735; 83880; 84443; 84484; 85025; 85027; 85379; 93005; 93306; 93458; 96374; 99152; 99153; 99285; C1894; Q9967

== ENCOUNTER 2025-03-15 13:13 | Outpatient (RCR) | payer OTHER, SELFPAY ==
[2025-03-15 10:55] LABS: Glucose - Point of Care 142 mg/dl (70-99)
== END 2025-03-15 23:59 | disposition home or self-care (01) ==
LOC: CRHB 13:13
PROVIDERS: ATTENDING PHYSICIAN Internal Medicine Cardiovascular Disease
DX: I50.22 Chronic systolic (congestive) heart failure (principal)
CPT/HCPCS: 82962; G0422; G0423

== ENCOUNTER 2025-04-17 17:53 | Outpatient (RCR) | payer OTHER, SELFPAY | END 2025-04-17 23:59 | disposition home or self-care (01) | LOC: CRHB 17:53 | PROVIDERS: ATTENDING PHYSICIAN Internal Medicine Cardiovascular Disease | DX: I50.22 Chronic systolic (congestive) heart failure (principal) | CPT/HCPCS: G0422; G0423 ==

== ENCOUNTER 2025-05-15 17:32 | Outpatient (RCR) | payer OTHER, SELFPAY | END 2025-05-15 23:59 | disposition home or self-care (01) | LOC: CRHB 17:32 | PROVIDERS: ATTENDING PHYSICIAN Internal Medicine Cardiovascular Disease | DX: I50.22 Chronic systolic (congestive) heart failure (principal) | CPT/HCPCS: G0422; G0423 ==

== ENCOUNTER 2025-05-24 17:32 | Outpatient (RCR) | payer OTHER, SELFPAY | END 2025-06-13 13:14 | disposition home or self-care (01) | LOC: CRHB 17:32 | PROVIDERS: ATTENDING PHYSICIAN Internal Medicine Cardiovascular Disease | DX: I11.0 Hypertensive heart disease with heart failure (principal); I50.22 Chronic systolic (congestive) heart failure; E78.5 Hyperlipidemia, unspecified; R73.03 Prediabetes; E66.9 Obesity, unspecified | CPT/HCPCS: G0422; G0423 ==

== ENCOUNTER → 2025-06-08 15:15 | Outpatient (REF) | payer OTHER, SELFPAY | LOC: RCS 15:15 | PROVIDERS: ATTENDING PHYSICIAN Physician Assistant; FAMILY PHYSICIAN Family Medicine | DX: I42.9 Cardiomyopathy, unspecified (principal); I50.20 Unspecified systolic (congestive) heart failure | CPT/HCPCS: 93306 ==

== ENCOUNTER → 2025-09-18 09:03 | Outpatient (REF) | payer OTHER, SELFPAY | LOC: MRI 09:03 | PROVIDERS: ATTENDING PHYSICIAN Internal Medicine Cardiovascular Disease; FAMILY PHYSICIAN Family Medicine | DX: I47.29 Other ventricular tachycardia (principal); I42.0 Dilated cardiomyopathy | CPT/HCPCS: 75561; 75565; A9585 ==